=== PATIENT | female | born 1955 | race Caucasian/White ===

== ENCOUNTER 2020-02-25 08:48 | Emergency (ER) | payer MEDICARE, OTHER, SELFPAY ==
[2020-02-25 09:01] VITALS: BP 167/108; PULSE 70; RESP 16; TEMP 36.7; O2SAT 96; BMI 37.1
--- NOTE | 2020-02-25 09:24 | ECG_ITS ---
Measurements Intervals Bath Rate: 56 P: 43 NJ: 212 QRS: -27 QRSD: 85 T: 44 QT: 480 QTc: 464 SINUS BRADYCARDIA WITH FIRST DEGREE AV BLOCK BORDERLINE LEFT AXIS DEVIATION [QRS AXIS < -20] PROLONGED QT INTERVAL Compared to ECG 03/13/2017 11:04:40 First degree AV block now present Prolonged QT interval now present Sinus rhythm no longer present Electronically Signed On 02-25-2020 11:51:13 CDT by Pedro Perez M.D. [email or web address]
--- NOTE | 2020-02-25 09:24 | XR_ITS ---
WS: [id number] PORTABLE CHEST HISTORY: chest pain COMPARISON: 10/19/2017 Linear scar atelectasis at the LEFT costophrenic angle. No pleural effusion or pneumothorax. Cardiac size: Normal. Mediastinum/Aorta: Ectatic aorta. No osseous abnormality seen. XR/XR chest 1V portable [id number] IMPRESSION: Stable chest with ectatic thoracic aorta. No pneumonia.
--- NOTE | 2020-02-25 09:26 | ED_ITS ---
HPI - General Adult General: Chief complaint: General Medical Stated complaint: high BP sent by PCP Time Seen by Provider: 02/25/20 09:06 Source: patient Mode of arrival: ambulatory Limitations: no limitations History of Present Illness: HPI narrative: Patient is a 64-year-old female who presents to ED today with a complaint of hypertension. 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 Patient manually took her blood pressure and confirmed this. The following day she was seen at Dr. Quinones's office who placed her on clonidine 0.1 BID. She was told to come to the emergency department the following day if this did not control her blood pressure. Patient states when she woke up this morning BP was still 190s/100s. Patient does report a mild intermittent headache over the past few days. She does not complain of any visual changes. She chronically has mild lower extremity edema that she has treated with HCTZ for years. She does not complain of any chest pain or shortness of breath currently. She states she has had chest twinges previously but nothing recently. Patient reports a strong family history of hypertension. She notes added stress of her currently being hospitalized. Onset (ago): day(s) Associated symptoms: Reports headache(s) (very mild-intermittently ); Deny chest pain, dyspnea, malaise, nausea, rash, palpitations, syncope or vomiting Review of Systems General: Reports: 10 or more systems reviewed and unremarkable except in HPI and below Const: Denies: fever(s), chills, body aches, change in appetite, change in weight, fatigue or malaise Eyes: Denies: change in vision, blurry vision, photophobia or seeing flashes Card: Reports: swelling of feet/ankles (chronic); Denies: chest pain, palpitations, irregular heart rhythm, edema, lightheadedness, syncope, pre-syncope, dyspnea on exertion, orthopnea or leg pain with exertion Resp: Denies: dyspnea, productive cough, pain on inspiration, hemoptysis or chest congestion GI: Denies: abdominal pain, nausea, vomiting, heartburn or diarrhea : Denies: flank pain, difficulty voiding, dysuria, urinary frequency or urinary urgency Musc: Denies: neck pain, back pain, extremity pain, extremity swelling, joint pain or joint swelling Skin/Breast: Denies: rash Neuro: Reports: headache(s) (very mild-intermittently ); Denies: numbness in extremities, weakness in extremities, sensory changes, lack of coordination or dizziness PFSH ED PFSH: Social History Smoking and tobacco status: former smoker Physical Exam Const: COMMON NORMALS: no acute distress, patient oriented x3, no limitations and alert NUTRITIONAL APPEARANCE: obese ORIENTATION/CONSCIOUSNESS: Yes oriented to person, Yes oriented to place and Yes oriented to time HENMT: COMMON NORMALS: normocephalic and atraumatic HEAD & SCALP: normocephalic and atraumatic Resp: COMMON NORMALS: normal respiratory effort and clear to auscultation bilaterally AUSCULTATION: clear to auscultation bilaterally Cardio: COMMON NORMALS: regular rate and regular rhythm RATE: regular rate RHYTHM: regular rhythm Extremity: COMMON NORMALS: no clubbing, cyanosis or edema and no pedal edema Neuro: DO COMA SCALE: document GCS findings [place] coma scale eye opening: Spontaneous Do coma scale verbal response: Orientated [place] coma scale motor response: Obey commands [place] coma scale total score: 15 COMMON NORMALS: patient oriented x3, moves all extremities, no focal motor deficits, no sensory deficits noted and gait normal SENSORIUM/ORIENTATION: Yes alert, Yes oriented to person, Yes oriented to place and Yes oriented to time Skin: COMMON NORMALS: no rashes or lesions noted GENERAL SKIN EXAM: no rashes or lesions noted Course Vital Signs: Vital signs: Vital Signs Temperature 98.0 F 02/25/20 09:01 Pulse Rate 59 L 02/25/20 11:41 Respiratory Rate 16 02/25/20 11:41 Blood Pressure 137/87 02/25/20 11:41 Pulse Oximetry 92 02/25/20 11:41 MDM - General Adult MDM Narrative: Medical decision making narrative: Patient clinically appears well. She responded well to a low-dose 2.5 mg IV dose of metoprolol. Patient's blood pressure now 137/87. Patient's chest x-ray is normal. She has an elevated TSH with a mildly low free T3. I do not have previous labs. This can be followed up with her PCP. Her EKG shows no ventricular hypertrophy. She has a very mildly prolonged QT interval. This was discussed with Dr. Kate who does not seem concerned. Patient will be placed on small dose of metoprolol at home. We will change clonidine to PRN for BP 160s/100s. Recommend she follow up with her PCP early next week for re-evaluation. Agrees to keep BP log to discuss with them so they can adjust meds accordingly. Lab Data: Labs: Lab Results 02/25/20 02/25/20 02/25/20 Range/Units 09:35 09:35 09:35 WBC 7.4 (4.0-10.0) 10^3/ uL RBC 4.64 (4.1-5.3) 10^6/u L Hgb 14.4 (11.5-15.3) g/dL Hct 44.0 (37.0-47.0) % MCV 94.8 (81-99) fL MCH 31.0 (28.0-34.0) pg MCHC 32.7 (30.0-36.0) g/dL RDW 13.9 (12.1-15.1) % Plt Count 292 (130-400) 10^3/c mm MPV 9.9 (7.4-10.4) fL Neut % (Auto) 63.7 % Lymph % (Auto) 26.3 % [place] % (Auto) 6.6 % Eos % (Auto) 2.4 % Baso % (Auto) 0.7 % Neut # (Auto) 4.7 (1.8-7.7) 10^3/u L Lymph # (Auto) 1.9 (0.8-4.8) 10^3/u L [place]ala # (Auto) 0.5 (0.2-0.9) 10^3/u L Eos # (Auto) 0.2 (0.0-0.8) 10^3/u L Baso # (Auto) 0.1 (0.0-0.1) 10^3/u L Nucleated RBC % (a uto) 0 % Nucleated RBCs # 0.0 /100WBC Sodium 140 (136-145) mmol/L Potassium 4.2 (3.5-5.1) mmol/L Chloride 100 (98-107) mmol/L Carbon Dioxide 28 (22-29) mmol/L Anion Gap 16.2 (5-19) BUN 19 (8-23) mg/dL Creatinine 0.7 (0.5-0.9) mg/dL GFR Calculation 84.0 L (90-130) mL/min Glucose 96 (65-115) mg/dL Calculated Osmolal ity 286 (285-295) mOsm/k g Calcium 10.2 (8.5-10.5) mg/dL Total Bilirubin 0.4 (0.15-1.2) mg/dL AST 20 (0-32) U/L ALT 18 (0-33) U/L Alkaline Phosphata se 84 (35-105) IU/L Troponin T Gen 5 n g/L 11 H (0-10) ng/mL NT-Pro-B Natriuret Pep 123 (0-125) pg/mL Total Protein 7.2 (6.6-8.7) g/dL Albumin 4.6 (3.5-5.2) g/dL Globulin 2.6 (1.3-4.6) g/dL TSH 18.24 H (0.27-4.20) uIU/ mL Free T4 (0.82-1.77) ng/d L Free T3 (2.0-4.4) PG/ML 02/25/20 Range/Units 09:35 WBC (4.0-10.0) 10^3/ uL RBC (4.1-5.3) 10^6/u L Hgb (11.5-15.3) g/dL Hct (37.0-47.0) % MCV (81-99) fL MCH (28.0-34.0) pg MCHC (30.0-36.0) g/dL RDW (12.1-15.1) % Plt Count (130-400) 10^3/c mm MPV (7.4-10.4) fL Neut % (Auto) % Lymph % (Auto) % [place] % (Auto) % Eos % (Auto) % Baso % (Auto) % Neut # (Auto) (1.8-7.7) 10^3/u L Lymph # (Auto) (0.8-4.8) 10^3/u L [place] # (Auto) (0.2-0.9) 10^3/u L Eos # (Auto) (0.0-0.8) 10^3/u L Baso # (Auto) (0.0-0.1) 10^3/u L Nucleated RBC % (a uto) % Nucleated RBCs # /100WBC Sodium (136-145) mmol/L Potassium (3.5-5.1) mmol/L Chloride (98-107) mmol/L Carbon Dioxide (22-29) mmol/L Anion Gap (5-19) BUN (8-23) mg/dL Creatinine (0.5-0.9) mg/dL GFR Calculation (90-130) mL/min Glucose (65-115) mg/dL Calculated Osmolal ity (285-295) mOsm/k g Calcium (8.5-10.5) mg/dL Total Bilirubin (0.15-1.2) mg/dL AST (0-32) U/L ALT (0-33) U/L Alkaline Phosphata se (35-105) IU/L Troponin T Gen 5 n g/L (0-10) ng/mL NT-Pro-B Natriuret Pep (0-125) pg/mL Total Protein (6.6-8.7) g/dL Albumin (3.5-5.2) g/dL Globulin (1.3-4.6) g/dL TSH (0.27-4.20) uIU/ mL Free T4 0.91 (0.82-1.77) ng/d L Free T3 1.5 L (2.0-4.4) PG/ML Imaging Data^: CXR: Radiologist's impression: [place] [address] XRay Report Signed Patient: Jocelyn Kern Unit #: [id number] : 1955 Age/Sex: 64 / F ADM Date: 02/25/20 Loc: ER Room/Bed: Attending Dr: Ordering Provider/Ordering MD: Jia Simmons Date of Service: 02/25/20 Procedure(s): XR chest 1V portable [id number] Accession Number(s): [id number] Report Number: [id number] WS: [id number] PORTABLE CHEST HISTORY: chest pain COMPARISON: 10/19/2017 Linear scar atelectasis at the LEFT costophrenic angle. No pleural effusion or pneumothorax. Cardiac size: Normal. Mediastinum/Aorta: Ectatic aorta. No osseous abnormality seen. XR/XR chest 1V portable [id number] IMPRESSION: Stable chest with ectatic thoracic aorta. No pneumonia. Dictated By: Sarah Beth Suarez DO Signed By: Sarah Beth Suarez DO Signed Date/Time: 02/24 1014 DD/ 1013 Discharge Plan Discharge Patient Disposition: Home, Self-Care Clinical Impression: Hypertension Qualifiers: Hypertension type: unspecified Qualified Code(s): I10 - Essential (primary) hypertension Condition: Stable Prescriptions: New metoprolol tartrate 25 mg tablet 12.5 mg PO BID Qty: 30 RF: 0 No Action clonidine HCl 0.1 mg tablet 0.1 mg PO BID RF: 0 venlafaxine 75 mg capsule,extended release 24hr 150 mg PO BEDTIME RF: 0 alprazolam 0.5 mg tablet 0.5 mg PO Q6H PRN (Reason: Anxiety) RF: 0 levothyroxine 150 mcg tablet 150 mcg PO DAILY RF: 0 Premarin 0.625 mg tablet 0.625 mg PO DAILY RF: 0 hydrochlorothiazide 25 mg tablet 25 mg PO DAILY RF: 0 pregabalin 100 mg capsule 200 mg PO BEDTIME RF: 0 multivitamin Tablet 1 tab PO DAILY RF: 0 omeprazole 20 mg Tablet,Delayed Release (Dr/Ec) 20 mg PO DAILY RF: 0 Discharge Orders: Discharge Order (Routine); Ordered 02/25/20 Ordered By: Jia Simmons Referrals: Abimael Bee MD [Primary Care Provider] - Activity Restrictions/Additional Instructions: As discussed please have your primary care provider follow-up on your thyroid labs as they have previous levels and can compare and adjust medications if indicated. We will place you on a low-dose metoprolol twice daily. We will change her clonidine to a as needed medication to use if systolic blood pressure is over 160 or diastolic over 100 (may use up to 3 tabs daily) Discharge Date/Time: 02/25/20 11:42 Coding Level of Care Code ED Safety Representative for Maryg Fwd Exam Detailed
[2020-02-25] MEDS: metoprolol tartrate 1 mg/1 mL SDV 5 mL 2.5 MG IV (09:38)
[2020-02-25 09:44] LABS: Basophils # 0.1 10^3/uL (0.0-0.1); Basophils % 0.7 %; Eosinophils # 0.2 10^3/uL (0.0-0.8); Eosinophils % 2.4 %; Hemoglobin 14.4 g/dL (11.5-15.3); Lymphocytes # 1.9 10^3/uL (0.8-4.8); Lymphocytes % 26.3 %; Mean Corpuscular HGB Conc 32.7 g/dL (30.0-36.0); Mean Corpuscular Volume 94.8 fL (81-99); Mean Platelet Volume 9.9 fL (7.4-10.4); Monocytes # 0.5 10^3/uL (0.2-0.9); Monocytes % 6.6 %; Neutrophils # 4.7 10^3/uL (1.8-7.7); Neutrophils % 63.7 %; Nucleated Red Blood Cells % 0 %; Platelet Count 292 10^3/cmm (130-400); Red Blood Count 4.64 10^6/uL (4.1-5.3); Red Cell Distribution Width 13.9 % (12.1-15.1); White Blood Count 7.4 10^3/uL (4.0-10.0)
[2020-02-25 10:24] LABS: Troponin T (5th) Once 11 ng/mL (0-10)
[2020-02-25 10:32] LABS: Alanine Aminotransferase 18 U/L (0-33); Albumin Level 4.6 g/dL (3.5-5.2); Alkaline Phosphatase 84 IU/L (35-105); Anion Gap 16.2 (5-19); Aspartate Amino Transferase 20 U/L (0-32); Blood Urea Nitrogen 19 mg/dL (8-23); Calcium 10.2 mg/dL (8.5-10.5); Carbon Dioxide 28 mmol/L (22-29); Chloride 100 mmol/L (98-107); Globulin 2.6 g/dL (1.3-4.6); Glucose 96 mg/dL (65-115); NT Pro B Type Natriuretic Pept 123 pg/mL (0-125); Osmolality Calculated 286 mOsm/kg (285-295); Potassium 4.2 mmol/L (3.5-5.1); Sodium 140 mmol/L (136-145); Thyroid Stimulating Hormone 18.24 uIU/mL (0.27-4.20); Total Bilirubin 0.4 mg/dL (0.15-1.2); Total Protein 7.2 g/dL (6.6-8.7)
[2020-02-25 10:35] VITALS: BP 146/90; PULSE 57; RESP 18; O2SAT 94
[2020-02-25 11:13] LABS: Free T4 Free Thyroxine 0.91 ng/dL (0.82-1.77); T3 Free 1.5 PG/ML (2.0-4.4)
[2020-02-25 11:41] VITALS: BP 137/87; PULSE 59; RESP 16; O2SAT 92
== END 2020-02-25 11:42 | disposition home or self-care (01) ==
PROVIDERS: Emergency Provider Physician Assistant; PCP Family Medicine
DX: I10 Essential (primary) hypertension (principal); Z87.891 Personal history of nicotine dependence
CPT/HCPCS: 12345; 71045; 80053; 83880; 84439; 84443; 84481; 84484; 85025; 93005; 96374; 99282; 99283; J3490

== ENCOUNTER 2020-06-29 09:37 | Outpatient (CLI) | payer MEDICARE, OTHER, SELFPAY ==
--- NOTE | 2020-06-29 10:51 | ECG_ITS ---
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 Interpretive Statements NAME OF STUDY: LEXISCAN SESTAMIBI STRESS TEST INDICATION: Chest Pain, PROCEDURE: At the baseline, the EKG revealed normal sinus rhythm with poor R wave progression. Possible left atrial enlargement. Occasional PVCs. Some nonspecific ST changes. The baseline blood pressure was 156/79 mm Hg with a heart rate of 96 beats/min. Lexiscan was infused over a period of 20 seconds. A total of 0.4 milligrams of Lexiscan was infused. The stress phase was continued for a total of 5 minutes. Heart rate at the end of the stress phase was 94 with a blood pressure 167/83. The EKG at the peak infusion revealed no significant changes. Sestamibi was injected 20 seconds after the Lexiscan infusion. Blood pressure at the end of the recovery phase was 137/70 with a heart rate of 94 per minute. CONCLUSION: 1. No significant EKG changes with the LexiScan infusion 2. No LexiScan induced chest pain or cardiac arrhythmia 3. Normal blood pressure and heart rate response 4. Sestamibi/sestamibi perfusion scan pending; see separate report. BP at 2:00 exercise 167/83 BP at 3:00 exercise stage 141/73 BP at 4:00 exercise stage 137/67 Electronically Signed On 06-30-2020 8:31:41 CDT by Breanna Santos M.D. [id number]
--- NOTE | 2020-06-29 10:51 | NMCV_ITS ---
NM rudy perf SPECT r/s* [id number] Jocelyn Kern Age: 64 Gender: F : 1955 Exam Date: 06/29/2020 10:42 Ordering Phys: Abimael Bee MD Technologist: CHANCE Hughes Exam Location: [facility] Indications: CHEST PAIN STRESS TEST Please see separate stress test report in [facility] for full findings IMAGE PROTOCOL Rest/Stress 1 Lexiscan Day Radiopharmaceutical Dose (mCi) Administration Site Administered by Rest: Tc-99m 10.6 IV CHANCE Hughes Sestamibi Stress:Tc-99m 32.8 IV CHANCE Cuellar Sestamibi Rest: 29-Jun-2020 60 Discovery 630 Stress: 29-Jun-2020 30 Discovery 630 0.4mg Lexiscan. Images obtained in supine and prone position. SPECT RESULTS Technical Quality: Excellent Raw Data Analysis: Normal Image Corrections: No attenuation or motion correction applied Summed Stress Score: 5 Summed Rest Score: 1 Summed Difference Score: 4 PERFUSION FINDINGS Small to moderate area of slightly decreased tracer uptake was noted in the mid and apical anterior, mid anterolateral, apical lateral and apical septal regions. Some reversibility was noted in these regions at rest FUNCTIONAL RESULTS (calculated via Gated SPECT) Stress Image LV EF (%): 58 Stress EDV (mL):111 TID: 1.4 Stress ESV (mL):47 FUNCTIONAL FINDINGS: Segmental wall motion analysis revealing no gross wall motion normalities. IMPRESSIONS 1. Myocardial perfusion imaging revealing a small to moderate area of reversible defects , suggestive of ischemia predominantly in the distribution of the left anterior descending artery with some involvement of the circumflex artery. 2. Normal LV ejection fraction 58%. 3. LV wall motion analysis revealing no gross wall motion abnormalities. 4. LV volume, upper limit of normal. 5. Elevated transient ischemic dilatation ratio also may suggest endocardial ischemia. No similar previous studies are available for comparison Dr Breanna Santos MD FAC (Electronically Signed) Final Date: 29 June 2020 23:43 S
[2020-06-29 10:53] VITALS: BMI 38.2
--- NOTE | 2020-06-29 11:43 | PC.NURSE ---
Unable to perform treadmill stress test Pt unable to reach target heart rate on treadmill d/t fatigue and SOB. Dr Bee notified and orders received to do Lexiscan stres test.
[2020-06-29] MEDS: regadenoson 0.4 Mg/5 ml Syringe IVP (11:50)
[2020-06-29 12:06] VITALS: BP 137/70; PULSE 94
== END 2020-06-29 09:38 | disposition home or self-care (01) ==
LOC: CDL 09:40
PROVIDERS: PCP Family Medicine; Visit Provider Family Medicine
DX: R07.9 Chest pain, unspecified (principal); R06.00 Dyspnea, unspecified; I25.9 Chronic ischemic heart disease, unspecified
CPT/HCPCS: 78452; 93017; A9500; J2785

== ENCOUNTER → 2020-09-07 15:53 | Outpatient (BNVA) | payer MEDICARE, OTHER, SELFPAY | PROVIDERS: PCP Family Medicine; Visit Provider Family Medicine | DX: Z20.828 Contact with and (suspected) exposure to other viral communicable diseases (principal) | CPT/HCPCS: 87635 ==

== ENCOUNTER → 2021-01-27 10:53 | Outpatient (BNVA) | payer MEDICARE, OTHER, SELFPAY | PROVIDERS: PCP Family Medicine; Referring Provider Family Medicine; Visit Provider Internal Medicine Cardiovascular Disease | DX: R94.39 Abnormal result of other cardiovascular function study (principal); I10 Essential (primary) hypertension | CPT/HCPCS: 80048; 85025; 85610 ==

== ENCOUNTER 2021-02-01 15:01 | Observation (INO) | payer MEDICARE, OTHER, SELFPAY ==
[2021-02-01] VITALS (16 sets, daily range): BP systolic 115–146; BP diastolic 58–89; PULSE 68–86; RESP 16–25; TEMP 37; O2SAT 91–96; BMI 39.2
--- NOTE | 2021-02-01 12:30 | XACV_ITS ---
Ht: 165 cm Wt: 107 kg BSA: 2.27 m2 Gender: Female : 1955 Any Known Allergies: Codeine Exam Priority: Routine Procedure(s): Procedure Description: Diagnostic procedure Procedure Description: Left Heart Catheterization Diagnostic Cath Status: Elective Diagnostic Findings * Left Main has no disease. * Left Anterior Descending has no disease. * Circumflex has no disease. * Proximal Right Coronary Artery to Distal Right Coronary Artery: patent, SHEILA: 3 flow. * Coronary angiography shows right dominance. Conclusions 1. There is patent coronary artery disease with one vessel disease. 2. Hyperdynamic left ventricular systolic function. Ejection fraction of 70%. Recommendations * Continue current medical management and risk factor modification. Ventriculography Ejection Fraction: 70.0 % Pressures Phase:Rest AO : 142 / 35 ( 76 ) @ 1:25:00 PM LV : 91 / 6 / 14 @ 1:23:00 PM 91 / 6 / 14 @ 1:23:00 PM 141 / 3 / 27 @ 1:24:00 PM Clinical Evaluation EBL: 5mL-10mL Procedural Details Procedure Consent Obtained. Admit Source: Out Patient. Pre-Procedure Time Out. Identified patient by full name and date of as verbalized by the patient/guarantor. Does the consent match the physician's order: Yes. Accurate & Complete Informed Consent: Yes. Inpatient/Outpatient History & Physical on Chart: Yes. If H&P is completed, is and addenduem needed: Yes; If yes, is the addendum complete: N/A. Visualize and Verify Site with Patient/Guarantor: N/A. Relevant Radiology Images available: N/A. Pre-op teaching completed and patient verbalized understanding. The risks, benefits, and alternatives of sedation and/or procedure were discussed by physician. The patient agrees to continue. Procedure started. Correct patient, site and procedure confirmed by cath team. [facility] Clinical Fraility Score: 3: Managing Well. [employer] Consultant Indications: New Onset Angina/ abnormal stress test. Chest Pain Symptom Assessment: Typical Angina Symptoms. Cardiovascular Instability: No. PERRLA. 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 Lungs clear x 5 lobes. IV Site on Arrival: 20 gauge in the right anticubital. Oxygen started at 2liters/min via nasal canula. bilateral groins was prepped with chloroprep then draped in the usual sterile fashion. right radial was prepped with chloroprep then draped in the usual sterile fashion. Physician notified. Baseline sample Acquired. HR: 72 BPM. Physician arrived. Physician scrubbed in. Immediate Pre-Procedure Time Out. Correct Patient: Yes; Correct Procedure: Yes; Correct Site: Yes; Correct Patient Position: Yes; Correct Supplies: Yes; Dried Flammable Prep: Yes; Blood Products Available: N/A;. Lidocaine 1% infiltrated to the right radial. Arterial access obtained. A 5 sinhala TIG catheter in over wire. Multiple views taken of left coronary artery. Catheter redirected to the RCA. Catheter out. A 5 sinhala Angled Pig catheter in over wire. EDP Sample taken: LV 91/6,14; HR: 78 BPM; SpO2: 97%. LV gram performed in BONILLA @ 10 mL/second for a total of 30 mL. EDP Sample taken: LV 141/3,27; HR: 74 BPM; SpO2: 97%. Pullback taken: LV Off; AO Off; Mean: , Peak to Peak: , SEP: ; HR: 78 BPM; SpO2: Off%. Catheter out. TR band placed. Hemostasis obtained. Post Procedure: Pulses reassessed and unchanged. PERRLA. 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 No VTE prophylaxis required. Medication's Wasted: Lidocaine 1% = 16 mL. Medication's Wasted: Heparin = 1000 units. Medication's Wasted: Nitro = 49.8 mg. Medication's Wasted: Other = fentanyl 50 mg. Total IV fluids: 50 mL. Contrast type used: Omnipaque 300 mgI/mL, 500 mL bottle. Contrast Material : Omnipaque 89 ml. A TR Band was successful obtaining hemostatsis at the Right Radial artery insertion site. Post-op diagnosis: normal coronaries. Complications: none. Estimated blood loss: 5mL-10mL. Procedure completed. Patient transferred by wheelchair to 1st floor. Vital chart was stopped. Access Site Site: Right Radial artery Sheath Size: 6 Fr Hemostasis Method: TR Band Hemostasis Success: Successful Procedure Medications Start: 2:02 PM Stop: 2:02 PM Medication: Versed Amount: 1 mg Route: I.V. Start: 2:02 PM Stop: 2:02 PM Medication: Fentanyl Amount: 50 mcg Route: I.V. Start: 2:12 PM Stop: 2:12 PM Medication: Versed Amount: 1 mg Route: I.V. Start: 2:16 PM Stop: 2:16 PM Medication: Nitrogylcerin Amount: 200 mcg Route: I.A. Start: 2:18 PM Stop: 2:18 PM Medication: Heparin Amount: 5000 units Route: I.V. I, the attending physician, have reviewed and verified all procedure medications. Yes, all medications given per verbal order History/Risk Factors Hypertension: Yes Tobacco Use: Former Report Signatures Finalized by Wenceslao Sawant MD on 02/14/2021 10:13 AM
[2021-02-01 13:09] LABS: SARS Covid-2 Antigen Negative (Negative)
[2021-02-01] MEDS: diphenhydrAMINE 50 mg Capsule PO (13:23)
--- NOTE | 2021-02-01 13:58 | W.PM.OPSUD ---
Surgery/Procedure H&P Update DATE OF PROCEDURE: February 01, 2021 DATE H&P PERFORMED: 01/27/21 H&P UPDATE INFORMATION: I have reviewed H&P completed within last 30 days, I have examined patient prior to procedure and No changes to prior documentation PREOP DIAGNOSIS: Abnormal stress test, angina PLANNED PROCEDURE: Operation Date: 02/01/21 13:30 Proposed Procedures p Cardiac Catheterization 69670 R94.39(Left) - Wenceslao Sawant MD PATIENT REASSESSED PRIOR TO SEDATION, WITH NO CHANGE NOTED: Yes PHYSICAL EXAM: alert, oriented x 3, clear to auscultation bilaterally and regular rate & rhythm AIRWAY EVAL/ANESTHESIA PLAN: ASA II, Risks, benefits & alternatives of sedation and/or procedure discussed and Patient agrees to continue as planned
== END 2021-02-01 19:18 | disposition home or self-care (01) ==
LOC: CSU 15:01
PROVIDERS: Admitting Provider Internal Medicine Cardiovascular Disease; PCP Family Medicine; Visit Provider Internal Medicine Cardiovascular Disease
DX: I25.10 Atherosclerotic heart disease of native coronary artery without angina pectoris (principal); R94.39 Abnormal result of other cardiovascular function study; F41.9 Anxiety disorder, unspecified; F32.9 Major depressive disorder, single episode, unspecified; K21.9 Gastro-esophageal reflux disease without esophagitis; I10 Essential (primary) hypertension; E03.9 Hypothyroidism, unspecified; Z87.891 Personal history of nicotine dependence
CPT/HCPCS: 36415; 87426; 93452; C1769; C1887; C1894; G0378; J1644; J2250; J3010; J3490; J7030; Q0163; Q9967

== ENCOUNTER 2021-02-17 15:12 | Outpatient (CLI) | payer MEDICARE, OTHER, SELFPAY ==
--- NOTE | 2021-02-17 15:45 | USCV_ITS ---
Jocelyn Kern Age: 65 Gender: F : 1955 Exam Date: 02/17/2021 15:27 Ordering Phys: Wenceslao Sawant MD ([email or web address]) Technologist: Yaquelin Colon Exam Location: [facility] Indication: ABNORMAL RESULT OF OTHER CARDIOGRAPHIC BP: 140 / 80 HR: 75 Rhythm: Sinus Technical Quality: Technically difficult study MEASUREMENTS (Male / Female) Normal Values 2D ECHO LV Diastolic Diameter PLAX 4.2 cm 4.2 - 5.9 / 3.9 - 5.3 cm LV Systolic Diameter PLAX 2.4 cm IVS Diastolic Thickness 1.1 cm 0.6 - 1.0 / 0.6 - 0.9 cm IVS Systolic Thickness 1.7 cm LVPW Diastolic Thickness 0.9 cm 0.6 - 1.0 / 0.6 - 0.9 cm LVPW Systolic Thickness 1.8 cm LVOT Diameter 2.0 cm LV Ejection Fraction 2D Teich 75.4 % LV Ejection Fraction MOD 2C 57.7 % LV Ejection Fraction 2C AL 60.3 % LA Diameter 3.0 cm LA Width 4.0 cm LA Height 5.2 cm RA Width 2.8 cm RA Height 3.6 cm Aorta at Sinotubular Diameter 2.6 cm M-MODE LV Diastolic Diameter MM 4.5 cm 4.2 - 5.9 / 3.9 - 5.3 cm LV Systolic Diameter MM 2.5 cm LV Ejection Fraction MM Teich 75.9 % IVS Diastolic Thickness MM 1.1 cm 0.6 - 1.0 / 0.6 - 0.9 cm IVS Systolic Thickness MM 1.7 cm LVPW Diastolic Thickness MM 0.9 cm 0.6 - 1.0 / 0.6 - 0.9 cm LVPW Systolic Thickness MM 1.4 cm Aortic Annulus Diameter 3.2 cm LA Ao Ratio MM 1.0 MV E Point Septal Separation 1.0 cm DOPPLER AV Peak Velocity 160.0 cm/s LVOT Peak Velocity 85.0 cm/s AV Area Cont Eq vti 1.9 cm squared AV Area Cont Eq pk 1.7 cm squared MV Area PHT 4.0 cm squared Mitral E to A Ratio 0.7 MV E' Velocity 35.5 cm/s Mitral E to MV E' Ratio 7.6 Mitral E to LV E' Lateral Ratio 7.7 Mitral E to LV E' Septal Ratio 7.5 TR Peak Velocity 225.0 cm/s TR Peak Gradient 20.3 mmHg TV Peak E Velocity 59.0 cm/s PV Peak Velocity 95.0 cm/s RV Acceleration Time 0.1 s RV Ejection Time 0.2 s RV AcT/ET 0.4 FINDINGS Left Ventricle Normal left ventricular cavity size. Normal left ventricular systolic function. No regional wall motion abnormalities. Grade I/IV diastolic dysfunction (abnormal relaxation filling pattern), normal to mildly elevated filling pressures. Left ventricular ejection fraction is estimated at 65 %. Right Ventricle The right ventricle is normal in size and function. Right Atrium The right atrium is normal in size. Left Atrium The left atrium is normal in size. Mitral Valve Structurally normal mitral valve without significant stenosis or prolapse. There is no mitral regurgitation. Aortic Valve Structurally normal aortic valve without significant sclerosis or stenosis. There is no aortic regurgitation. Tricuspid Valve Structurally normal tricuspid valve without significant stenosis or regurgitation. Pulmonary artery systolic pressure is normal. Pulmonic Valve Structurally normal pulmonic valve without significant stenosis. There is no pulmonic regurgitation. Pericardium Normal pericardium without effusion. Aorta Normal ascending aorta dimension. CONCLUSIONS 1-Normal left ventricular cavity size. Normal left ventricular systolic function. No regional wall motion abnormalities. Grade I/IV diastolic dysfunction (abnormal relaxation filling pattern), normal to mildly elevated filling pressures. Left ventricular ejection fraction is estimated at 65 %. 2-There is no pericardial effusion. 3-No significant chamber abnormalities. 4-Pulmonary artery systolic pressure is within normal limits. 5-Right atrial pressure is around 5 mm of mercury. 6-There are no prior echocardiogram studies to compare. Wenceslao Sawant MD (Electronically Signed) Final Date: 18 Feb 2021 23:03 S
== END 2021-02-17 15:13 | disposition home or self-care (01) ==
LOC: RAD 15:15
PROVIDERS: PCP Family Medicine; Visit Provider Internal Medicine Cardiovascular Disease
DX: R94.39 Abnormal result of other cardiovascular function study (principal)
CPT/HCPCS: 93306

== ENCOUNTER 2023-01-26 16:59 | Emergency (ER) | payer MEDICARE, OTHER, SELFPAY ==
[2023-01-26 17:07] VITALS: BP 179/115; PULSE 71; RESP 16; TEMP 36.6; O2SAT 98; BMI 36.4
--- NOTE | 2023-01-26 17:21 | XRR_ITS ---
PROCEDURE INFORMATION: Exam: XR Chest Exam date and time: 01/26/2023 5:29 PM Age: 67 years old Clinical indication: Dyspnea; Additional info: Elevated BP TECHNIQUE: Imaging protocol: Radiologic exam of the chest. Views: 1 view. COMPARISON: CR XR chest 1V portable [id number] 02/25/2020 9:44 AM FINDINGS: Lungs: Left lower lobe atelectasis versus minimal infiltrate. Emphysematous changes. Pleural spaces: Unremarkable. No pleural effusion. No pneumothorax. Heart/Mediastinum: Unremarkable. No cardiomegaly. Bones/joints: Unremarkable. XR/XR chest 1V portable [id number] IMPRESSION: 1. Left lower lobe atelectasis versus minimal infiltrate. 2. Emphysematous changes.
--- NOTE | 2023-01-26 18:06 | ED_ITS ---
Documented by User: NIKKI Garcia 01/26/23 19:26 HPI - Recheck/Abnormal Lab/Rx General: Chief Complaint: Recheck/Abnormal Lab/Rx Stated Complaint: High Blood Pressure Time Seen by Provider: 01/26/23 18:05 History of Present Illness: 67-year-old female comes in today for complaints of elevated blood pressure. Patient reports no chest pain, shortness of breath, or severe headache. Patient appears nontoxic. Patient only takes hydrochlorothiazide 25 mg a day for her blood pressure. Patient in the past has been on amlodipine but stopped it due to swelling in the lower extremities, patient is also been on metoprolol but it caused her pulse to drop even lower. Patient's heart rate is 65 at rest right now. Patient appears in no pain. Patient's affect is slightly flat. Patient does take some medications for mental health issues. Review of Systems Const: Denies: fever(s) Card: Denies: chest pain Resp: Denies: dyspnea GI: Denies: nausea or vomiting : Denies: difficulty voiding Musc: Denies: back pain Skin/Breast: Denies: rash Neuro: Denies: headache(s) or numbness in extremities Psych: Denies: anxiety PFSH ED PFSH: Medical History (Updated 01/26/23 @ 19:15 by NIKKI Garcia) Anxiety and depression Diverticulosis GERD (gastroesophageal reflux disease) Hypertension Hypothyroidism Internal hemorrhoids Surgical History H/O section H/O colonoscopy 04/16/18 H/O: hysterectomy Hx of cholecystectomy Family History Father CAD (coronary artery disease) Grandfather Cancer paternal and paternal aunt colorectal cancer Denies family history of Anesthesia complication Bleeding disorder Social History Smoking and tobacco status: former smoker Alcohol intake: never Substance/Drug Use: never Household members: spouse Marital status: Current occupational status: employed Physical Exam Const: COMMON NORMALS: alert HENMT: COMMON NORMALS: normocephalic HEAD & SCALP: normocephalic THROAT: posterior oropharynx normal Neck/C-Spine: COMMON NORMALS: full ROM Resp: COMMON NORMALS: normal respiratory effort Cardio: COMMON NORMALS: regular rate and regular rhythm RATE: regular rate RHYTHM: regular rhythm GI: COMMON NORMALS: Soft to palpation and non-tender PALPATION: Yes Soft to palpation : COMMON NORMALS: Yes no CVA tenderness BLADDER/KIDNEY EXAM: Yes no CVA tenderness Back/Pelvis: COMMON NORMALS: no CVA tenderness and thoracic and lumbar spine normal to inspection Extremity: COMMON NORMALS: no pedal edema Neuro: SENSORIUM/ORIENTATION: Yes alert Skin: COMMON NORMALS: turgor normal GENERAL SKIN EXAM: turgor normal Course Vital Signs: Vital signs: Vital Signs Temperature 97.8 F 01/26/23 17:07 Pulse Rate 70 01/26/23 19:28 Respiratory Rate 16 01/26/23 19:28 Blood Pressure 168/97 01/26/23 19:28 Pulse Oximetry 95 01/26/23 19:28 Oxygen Delivery Me thod Room Air 01/26/23 17:07 MDM - Recheck/Abnormal Lab/Rx Medical Decision Making 67-year-old female comes in today for complaints of elevated blood pressure. Rob barbour reports just not being able to get control of her blood pressure patient only takes 25 mg of hydrochlorothiazide daily. Patient appears nontoxic. Patient appears in no pain. Patient denies chest pain or shortness of breath. Lungs are clear to auscultation. Heart rates regular in the 60s. No edema is noted in the extremities. Differential diagnosis includes but not limited to hypertensive emergency, uncontrolled hypertension, CHF. No signs of severe illness is noted at this time. Patient denies any signs of shortness of breath, chest pain, or severe headache to suggest a hypertensive emergency. Vital signs are normal except for some elevation in blood pressure at 190 systolic. Patient was medicated with 25 mg of hydralazine p.o. blood pressure came down to 155/100. Patient maintained no symptoms throughout ER stay of severe headache, shortness of breath, or chest pain. We will start patient on losartan 50 mg daily and patient will continue with hydrochlorothiazide 25 mg daily. Discussed need for follow-up with primary care for recheck of blood pressure and adjustme nt of medication as needed. Recommend returning to the ER for severe symptoms such as chest pain, shortness of breath, or severe headache. Patient reported understanding and agreed to plan. Lab Data 01/26/23 18:06 01/26/23 18:06 Radiology Impressions Chest X-Ray 01/26/23 17:21 IMPRESSION: 1. Left lower lobe atelectasis versus minimal infiltrate. 2. Emphysematous changes. Laboratory Results WBC 8.7 10^3/uL (4.0-10.0) 01/26/23 18:06 RBC 4.53 10^6/uL (4.1-5.3) 01/26/23 18:06 Hgb 14.0 g/dL (11.5-15.3) 01/26/23 18:06 Hct 43.5 % (37.0-47.0) 01/26/23 18:06 MCV 96.0 fl (81-99) 01/26/23 18:06 MCH 30.9 pg (28.0-34.0) 01/26/23 18:06 MCHC 32.2 g/dL (30.0-36.0) 01/26/23 18:06 RDW 13.3 % (12.1-15.1) 01/26/23 18:06 Plt Count 239 10^3/cmm (130-400) 01/26/23 18:06 MPV 10.2 fL (7.4-10.4) 01/26/23 18:06 Neut % (Auto) 58.9 % 01/26/23 18:06 Lymph % (Auto) 29.9 % 01/26/23 18:06 Parke % (Auto) 7.0 % 01/26/23 18:06 Eos % (Auto) 3.2 % 01/26/23 18:06 Baso % (Auto) 0.7 % 01/26/23 18:06 Neut # (Auto) 5.14 10^3/uL (1.8-7.7) 01/26/23 18:06 Lymph # (Auto) 2.6 10^3/uL (0.8-4.8) 01/26/23 18:06 Parke # (Auto) 0.6 10^3/uL (0.2-0.9) 01/26/23 18:06 Eos # (Auto) 0.3 10^3/uL (0.0-0.8) 01/26/23 18:06 Baso # (Auto) 0.1 10^3/uL (0.0-0.1) 01/26/23 18:06 Nucleated RBC % (auto) 0 % 01/26/23 18:06 Nucleated RBCs # 0.0 /100WBC 01/26/23 18:06 Sodium 143 mmol/L (136-145) 01/26/23 18:06 Potassium 3.8 mmol/L (3.5-5.1) 01/26/23 18:06 Chloride 103 mmol/L (98-107) 01/26/23 18:06 Carbon Dioxide 30 mmol/L (22-29) H 01/26/23 18:06 Anion Gap 13.8 (5-19) 01/26/23 18:06 BUN 21 mg/dL (8-23) 01/26/23 18:06 Creatinine 0.8 mg/dL (0.5-0.9) 01/26/23 18:06 GFR Calculation 71.3 mL/min (90-130) L 01/26/23 18:06 Glucose 80 mg/dL (65-115) 01/26/23 18:06 Calculated Osmolality 298 mOsm/kg (285-295) H 01/26/23 18:06 Calcium 9.1 mg/dL (8.5-10.5) 01/26/23 18:06 Total Bilirubin 0.2 mg/dL (0.15-1.2) 01/26/23 18:06 AST 25 U/L (0-32) 01/26/23 18:06 ALT 18 U/L (0-33) 01/26/23 18:06 Alkaline Phosphatase 118 U/L (35-105) H 01/26/23 18:06 Troponin T Baseline 13 ng/L (0-10) H 01/26/23 18:06 NT-Pro-B Natriuret Pep 72 pg/mL (0-125) 01/26/23 18:06 Total Protein 7.3 g/dL (6.6-8.7) 01/26/23 18:06 Albumin 4.3 g/dL (3.5-5.2) 01/26/23 18:06 Globulin 3.0 g/dL (1.3-4.6) 01/26/23 18:06 Urine Color Yellow (Yellow) 01/26/23 18:20 Urine Appearance Clear (CLEAR) 01/26/23 18:20 Urine pH 8 (5-7) H 01/26/23 18:20 Ur Specific [place] 1.010 (1.005-1.030) 01/26/23 18:20 Urine Protein Neg (Negative) 01/26/23 18:20 Urine Glucose (UA) Norm (Normal) 01/26/23 18:20 Urine Ketones Negative (Negative) 01/26/23 18:20 Urine Blood Neg (Negative) 01/26/23 18:20 Urine Nitrate Negative (Negative) 01/26/23 18:20 Urine Bilirubin Neg (Negative) 01/26/23 18:20 Prot Sulfosalicylic Acd Negative (Negative) 01/26/23 18:20 Urine Urobilinogen Norm mg/dL (Negative) 01/26/23 18:20 Ur Leukocyte Esterase 1+ (Negative) H 01/26/23 18:20 Urine RBC 0-4 /hpf (0-2) H 01/26/23 18:20 Urine WBC 15-25 /hpf (0-5) H 01/26/23 18:20 Ur Squamous Epith Cells 0-4 /hpf (0-5) H 01/26/23 18:20 Amorphous Sediment Not Reportable 01/26/23 18:20 Urine Bacteria 1+ /hpf (NONE) H 01/26/23 18:20 Urine Mucus Trace /hpf 01/26/23 18:20 EKG Data EKG 1: EKG interpretation date: 01/26/23 EKG interpretation time: 18:25 Prior EKG tracings: not available for review Interpretation: EKG shows a sinus rhythm with a first-degree AV block. The regular rate at [address] elevation or ectopy is noted. No prior exam was available for comparison. Discharge Plan Discharge Patient Disposition: Home Clinical Impression: Hypertensive urgency Condition: Stable Prescriptions: New losartan 50 mg tablet 50 mg PO DAILY Qty: 30 0RF Discontinued isosorbide mononitrate 30 mg tablet extended release 24 hr 15 mg PO BID Qty: 30 6RF amlodipine [Norvasc] 5 mg tablet 10 mg PO DAILY clonidine HCl 0.1 mg tablet 0.1 mg PO BID PRN (Reason: hypertensive emergency) No Action aripiprazole [Abilify] 10 mg tablet 20 mg PO DAILY venlafaxine 75 mg capsule,extended release 24hr 150 mg PO BEDTIME Qty: 60 11RF pregabalin 100 mg capsule 150 mg PO BID Qty: 60 5RF alprazolam 0.5 mg tablet 0.5 mg PO Q6H PRN (Reason: Anxiety) Qty: 90 3RF hydrochlorothiazide 25 mg tablet See Rx Instructions .ROUTE .COMPLEX Qty: 90 11RF Dose Instruction: Take 1 tablet by mouth once daily Rx Instructions: Take 1 tablet by mouth once daily multivitamin Tablet 1 tab PO DAILY omeprazole 20 mg Tablet,Delayed Release (Dr/Ec) 20 mg PO DAILY levothyroxine 150 mcg tablet 200 mcg PO DAILY Discharge Orders: Discharge ED (Routine); Ordered 01/26/23 Ordered By: James Noonan Referrals: Abimael Bee MD [Primary Care Provider] - Discharge Diet: Usual diet Discharge Activity: Increase activity as tolerated Patient Instructions: DASH Eating Plan (ED), Hypertension (ED) Activity Restrictions/Additional Instructions: Continue with hydrochlorothiazide as directed. Start losartan 50 mg daily in the morning with routine medications. Follow-up with primary care early next week. Return to ER for worsening symptoms such as severe headache, chest pain, or shortness of breath. Coding Level of Care Code ED [employer] for [employer] Fwd Documented by User: Morteza Carlisle DO 01/26/23 23:56 HPI - Recheck/Abnormal Lab/Rx General: Chief Complaint: Recheck/Abnormal Lab/Rx Stated Complaint: High Blood Pressure Time Seen by Provider: 01/26/23 18:05 PFSH ED PFSH: Medical History (Updated 01/26/23 @ 19:15 by NIKKI Garcia) Anxiety and depression Diverticulosis GERD (gastroesophageal reflux disease) Hypertension Hypothyroidism Internal hemorrhoids Surgical History H/O section H/O colonoscopy 04/16/18 H/O: hysterectomy Hx of cholecystectomy Family History Father CAD (coronary artery disease) Grandfather Cancer paternal and paternal aunt colorectal cancer Denies family history of Anesthesia complication Bleeding disorder Social History Smoking and tobacco status: former smoker Alcohol intake: never Substance/Drug Use: never Household members: spouse Marital status: Current occupational status: employed Course Vital Signs: Vital signs: Vital Signs Temperature 97.8 F 01/26/23 17:07 Pulse Rate 70 01/26/23 19:28 Respiratory Rate 16 01/26/23 19:28 Blood Pressure 168/97 01/26/23 19:28 Pulse Oximetry 95 01/26/23 19:28 Oxygen Delivery Me thod Room Air 01/26/23 17:07 MDM - Recheck/Abnormal Lab/Rx Medical Decision Making 67-year-old female comes in today for complaints of elevated blood pressure. Patient reports just not being able to get control of her blood pressure patient only takes 25 mg of hydrochlorothiazide daily. Patient appears nontoxic. Patient appears in no pain. Patient denies chest pain or shortness of breath. Lungs are clear to auscultation. Heart rates regular in the 60s. No edema is noted in the extremities. Differential diagnosis includes but not limited to hypertensive emergency, uncontrolled hypertension, CHF. No signs of severe illness is noted at this time. Patient denies any signs of shortness of breath, chest pain, or severe headache to suggest a hypertensive emergency. Vital signs are normal except for some elevation in blood pressure at 190 systolic. Patient was medicated with 25 mg of hydralazine p.o. blood pressure came down to 155/100. Patient maintained no symptoms throughout ER stay of severe headache, shortness of breath, or chest pain. We will start patient on losartan 50 mg daily and patient will continue with hydrochlorothiazide 25 mg daily. Discussed need for follow-up with primary care for recheck of blood pressure and adjustment of medication as needed. Recommend returning to the ER for severe symptoms such as chest pain, shortness of breath, or severe headache. Patient reported understanding and agreed to plan. This patient was originally seen by NIKKI Guillermo.? I agree with his history, evaluation, and treatment. Lab Data 01/26/23 18:06 01/26/23 18:06 Radiology Impressions Chest X-Ray 01/26/23 17:21 IMPRESSION: 1. Left lower lobe atelectasis versus minimal infiltrate. 2. Emphysematous changes. Laboratory Results WBC 8.7 10^3/uL (4.0-10.0) 01/26/23 18:06 RBC 4.53 10^6/uL (4.1-5.3) 01/26/23 18:06 Hgb 14.0 g/dL (11.5-15.3) 01/26/23 18:06 Hct 43.5 % (37.0-47.0) 01/26/23 18:06 MCV 96.0 fl (81-99) 01/26/23 18:06 MCH 30.9 pg (28.0-34.0) 01/26/23 18:06 MCHC 32.2 g/dL (30.0-36.0) 01/26/23 18:06 RDW 13.3 % (12.1-15.1) 01/26/23 18:06 Plt Count 239 10^3/cmm (130-400) 01/26/23 18:06 MPV 10.2 fL (7.4-10.4) 01/26/23 18:06 Neut % (Auto) 58.9 % 01/26/23 18:06 Lymph % (Auto) 29.9 % 01/26/23 18:06 Parke % (Auto) 7.0 % 01/26/23 18:06 Eos % (Auto) 3.2 % 01/26/23 18:06 Baso % (Auto) 0.7 % 01/26/23 18:06 Neut # (Auto) 5.14 10^3/uL (1.8-7.7) 01/26/23 18:06 Lymph # (Auto) 2.6 10^3/uL (0.8-4.8) 01/26/23 18:06 Parke # (Auto) 0.6 10^3/uL (0.2-0.9) 01/26/23 18:06 Eos # (Auto) 0.3 10^3/uL (0.0-0.8) 01/26/23 18:06 Baso # (Auto) 0.1 10^3/uL (0.0-0.1) 01/26/23 18:06 Nucleated RBC % (auto) 0 % 01/26/23 18:06 Nucleated RBCs # 0.0 /100WBC 01/26/23 18:06 Sodium 143 mmol/L (136-145) 01/26/23 18:06 Potassium 3.8 mmol/L (3.5-5.1) 01/26/23 18:06 Chloride 103 mmol/L (98-107) 01/26/23 18:06 Carbon Dioxide 30 mmol/L (22-29) H 01/26/23 18:06 Anion Gap 13.8 (5-19) 01/26/23 18:06 BUN 21 mg/dL (8-23) 01/26/23 18:06 Creatinine 0.8 mg/dL (0.5-0.9) 01/26/23 18:06 GFR Calculation 71.3 mL/min (90-130) L 01/26/23 18:06 Glucose 80 mg/dL (65-115) 01/26/23 18:06 Calculated Osmolality 298 mOsm/kg (285-295) H 01/26/23 18:06 Calcium 9.1 mg/dL (8.5-10.5) 01/26/23 18:06 Total Bilirubin 0.2 mg/dL (0.15-1.2) 01/26/23 18:06 AST 25 U/L (0-32) 01/26/23 18:06 ALT 18 U/L (0-33) 01/26/23 18:06 Alkaline Phosphatase 118 U/L (35-105) H 01/26/23 18:06 Troponin T Baseline 13 ng/L (0-10) H 01/26/23 18:06 NT-Pro-B Natriuret Pep 72 pg/mL (0-125) 01/26/23 18:06 Total Protein 7.3 g/dL (6.6-8.7) 01/26/23 18:06 Albumin 4.3 g/dL (3.5-5.2) 01/26/23 18:06 Globulin 3.0 g/dL (1.3-4.6) 01/26/23 18:06 Urine Color Yellow (Yellow) 01/26/23 18:20 Urine Appearance Clear (CLEAR) 01/26/23 18:20 Urine pH 8 (5-7) H 01/26/23 18:20 Ur Specific [place] 1.010 (1.005-1.030) 01/26/23 18:20 Urine Protein Neg (Negative) 01/26/23 18:20 Urine Glucose (UA) Norm (Normal) 01/26/23 18:20 Urine Ketones Negative (Negative) 01/26/23 18:20 Urine Blood Neg (Negative) 01/26/23 18:20 Urine Nitrate Negative (Negative) 01/26/23 18:20 Urine Bilirubin Neg (Negative) 01/26/23 18:20 Prot Sulfosalicylic Acd Negative (Negative) 01/26/23 18:20 Urine Urobilinogen Norm mg/dL (Negative) 01/26/23 18:20 Ur Leukocyte Esterase 1+ (Negative) H 01/26/23 18:20 Urine RBC 0-4 /hpf (0-2) H 01/26/23 18:20 Urine WBC 15-25 /hpf (0-5) H 01/26/23 18:20 Ur Squamous Epith Cells 0-4 /hpf (0-5) H 01/26/23 18:20 Amorphous Sediment Not Reportable 01/26/23 18:20 Urine Bacteria 1+ /hpf (NONE) H 01/26/23 18:20 Urine Mucus Trace /hpf 01/26/23 18:20 Discharge Plan Discharge Patient Disposition: Home Clinical Impression: Hypertensive urgency Condition: Stable Prescriptions: New losartan 50 mg tablet 50 mg PO DAILY Qty: 30 0RF Discontinued isosorbide mononitrate 30 mg tablet extended release 24 hr 15 mg PO BID Qty: 30 6RF amlodipine [Norvasc] 5 mg tablet 10 mg PO DAILY clonidine HCl 0.1 mg tablet 0.1 mg PO BID PRN (Reason: hypertensive emergency) No Action aripiprazole [Abilify] 10 mg tablet 20 mg PO DAILY venlafaxine 75 mg capsule,extended release 24hr 150 mg PO BEDTIME Qty: 60 11RF pregabalin 100 mg capsule 150 mg PO BID Qty: 60 5RF alprazolam 0.5 mg tablet 0.5 mg PO Q6H PRN (Reason: Anxiety) Qty: 90 3RF hydrochlorothiazide 25 mg tablet See Rx Instructions .ROUTE .COMPLEX Qty: 90 11RF Dose Instruction: Take 1 tablet by mouth once daily Rx Instructions: Take 1 tablet by mouth once daily multivitamin Tablet 1 tab PO DAILY omeprazole 20 mg Tablet,Delayed Release (Dr/Ec) 20 mg PO DAILY levothyroxine 150 mcg tablet 200 mcg PO DAILY Discharge Orders: Discharge ED (Routine); Ordered 01/26/23 Ordered By: James Noonan Referrals: Abimael Bee MD [Primary Care Provider] - Discharge Diet: Usual diet Discharge Activity: Increase activity as tolerated Patient Instructions: DASH Eating Plan (ED), Hypertension (ED) Activity Restrictions/Additional Instructions: Continue with hydrochlorothiazide as directed. Start losartan 50 mg daily in the morning with routine medications. Follow-up with primary care early next week. Return to ER for worsening symptoms such as severe headache, chest pain, or shortness of breath. Coding Level of Care Code ED [employer] for [place] Avendaño
[2023-01-26 18:10] VITALS: BP 192/106; PULSE 65; O2SAT 97
--- NOTE | 2023-01-26 18:11 | ECG_ITS ---
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 Measurements Intervals [place] Rate: 64 P: 52 OH: 235 QRS: -6 QRSD: 85 T: 55 QT: 414 QTc: 427 Interpretive Statements SINUS RHYTHM WITH FIRST DEGREE AV BLOCK Compared to ECG 02/25/2020 11:06:30 Sinus bradycardia no longer present Prolonged QT interval no longer present Electronically Signed On 01-27-2023 22:20:55 CDT by Breanna Santos M.D. [id number]
[2023-01-26 18:15] LABS: Basophils # 0.1 10^3/uL (0.0-0.1); Basophils % 0.7 %; Eosinophils # 0.3 10^3/uL (0.0-0.8); Eosinophils % 3.2 %; Hematocrit 43.5 % (37.0-47.0); Lymphocytes # 2.6 10^3/uL (0.8-4.8); Lymphocytes % 29.9 %; Mean Corpuscular HGB Conc 32.2 g/dL (30.0-36.0); Mean Corpuscular Hemoglobin 30.9 pg (28.0-34.0); Mean Platelet Volume 10.2 fL (7.4-10.4); Monocytes # 0.6 10^3/uL (0.2-0.9); Neutrophils # 5.14 10^3/uL (1.8-7.7); Neutrophils % 58.9 %; Nucleated Red Blood Cells % 0 %; Platelet Count 239 10^3/cmm (130-400); Red Blood Count 4.53 10^6/uL (4.1-5.3); Red Cell Distribution Width 13.3 % (12.1-15.1); White Blood Count 8.7 10^3/uL (4.0-10.0)
[2023-01-26] MEDS: hyDRALAzine 25 mg Tablet PO (18:27)
[2023-01-26 18:36] VITALS: BP 163/105; PULSE 63; RESP 14; O2SAT 96
[2023-01-26 18:40] LABS: Troponin(5th) Baseline 13 ng/L (0-10)
[2023-01-26 18:45] LABS: Add Urine Microscopic? YES; Bilirubin Urine Neg (Negative); Blood Urine Neg (Negative); Glucose Urine UA Norm (Normal); Ketones Urine Negative (Negative); Nitrate Urine Negative (Negative); Protein Urine Neg (Negative); Sulfosalicylic Acid Urine Negative (Negative); Urine Appearance Clear (CLEAR); Urine Color Yellow (Yellow); Urobilinogen Urine Norm (Negative); pH Urine 8 (5-7)
[2023-01-26 18:46] LABS: Leukocyte Esterase Urine 1+ (Negative)
[2023-01-26 18:47] LABS: Bacteria Urine 1+ /hpf; Mucus Urine TRACE /hpf; RBC Urine 0-4 /hpf (0-2); Squamous Epithelial Cell Urine 0-4 /hpf (0-5); WBC Urine 15-25 /hpf (0-5)
[2023-01-26 18:50] LABS: Alanine Aminotransferase 18 U/L (0-33); Albumin Level 4.3 g/dL (3.5-5.2); Alkaline Phosphatase 118 U/L (35-105); Anion Gap 13.8 (5-19); Aspartate Amino Transferase 25 U/L (0-32); Blood Urea Nitrogen 21 mg/dL (8-23); Calcium 9.1 mg/dL (8.5-10.5); Carbon Dioxide 30 mmol/L (22-29); Chloride 103 mmol/L (98-107); Creatinine Clr Calc Pharmacy 78.5557; Glomerular Filtration Rate 71.3 mL/min (90-130); Glucose 80 mg/dL (65-115); NT Pro B Type Natriuretic Pept 72 pg/mL (0-125); Osmolality Calculated 298 mOsm/kg (285-295); Potassium 3.8 mmol/L (3.5-5.1); Sodium 143 mmol/L (136-145); Total Bilirubin 0.2 mg/dL (0.15-1.2); Total Protein 7.3 g/dL (6.6-8.7)
[2023-01-26 19:27] VITALS: BP 155/108
[2023-01-26] MEDS: losartan 50 mg Tablet PO (19:27)
[2023-01-26 19:28] VITALS: BP 168/97; PULSE 70; RESP 16; O2SAT 95
== END 2023-01-26 19:46 | disposition home or self-care (01) ==
PROVIDERS: Emergency Provider Nurse Practitioner Family; PCP Family Medicine
DX: I16.0 Hypertensive urgency (principal); I10 Essential (primary) hypertension; Z87.891 Personal history of nicotine dependence
CPT/HCPCS: 36415; 71045; 80053; 81001; 83880; 84484; 85025; 93005; 99285

== ENCOUNTER → 2023-02-01 08:39 | Outpatient (BNVA) | payer MEDICARE, OTHER, SELFPAY | PROVIDERS: PCP Family Medicine; Visit Provider Clinical Nurse Specialist Adult Health | DX: I10 Essential (primary) hypertension (principal); E05.00 Thyrotoxicosis with diffuse goiter without thyrotoxic crisis or storm | CPT/HCPCS: 80061; 84443 ==

== ENCOUNTER 2023-10-18 09:18 | Outpatient (CLI) | payer MEDICARE, OTHER, SELFPAY ==
--- NOTE | 2023-10-18 09:25 | XR_ITS ---
WS: [id number] Exam: XR shoulder RT min 2V* [id number] Date/Time of Exam: 10/18/2023 9:38 AM Reason For Exam: fracture Comparison 08/31/2023 from an outside institution. There is a displaced fracture of the surgical neck of the humerus. There is posterior rotational disp lacement of the humeral head and superior displacement of the humeral shaft with [id number] apposit ion. No dislocation. Mild degenerative change of the AC joint and glenohumeral joint. There is some c allus formation at the fracture site. IMPRESSION: 1. Displaced humeral neck fracture as noted above. No positional change since initial radiographs.
== END 2023-10-18 09:19 | disposition home or self-care (01) ==
LOC: RAD 09:19
PROVIDERS: PCP Family Medicine; Visit Provider Family Medicine
DX: S42.211A Unspecified displaced fracture of surgical neck of right humerus, initial encounter for closed fracture (principal); X58.XXXA Exposure to other specified factors, initial encounter
CPT/HCPCS: 73030

== ENCOUNTER → 2024-02-12 10:36 | Outpatient (BNVA) | payer MEDICARE, OTHER, SELFPAY | PROVIDERS: PCP Family Medicine; Visit Provider Clinical Nurse Specialist Adult Health | DX: R30.0 Dysuria (principal); N39.0 Urinary tract infection, site not specified | CPT/HCPCS: 81000; 87086 ==

== ENCOUNTER → 2024-06-18 14:55 | Outpatient (BNVA) | payer MEDICARE, OTHER, SELFPAY | PROVIDERS: PCP Family Medicine; Visit Provider Family Medicine | DX: I10 Essential (primary) hypertension (principal); E05.00 Thyrotoxicosis with diffuse goiter without thyrotoxic crisis or storm; S42.91XA Fracture of right shoulder girdle, part unspecified, initial encounter for closed fracture; E11.9 Type 2 diabetes mellitus without complications; R07.9 Chest pain, unspecified | CPT/HCPCS: 80053; 80061; 83036; 84443; 85025 ==

== ENCOUNTER → 2025-01-13 12:04 | Outpatient (BNVA) | payer MEDICARE, OTHER, SELFPAY | PROVIDERS: PCP Family Medicine; Visit Provider Family Medicine | DX: N39.0 Urinary tract infection, site not specified (principal) | CPT/HCPCS: 81000; 87086 ==

== ENCOUNTER → 2025-06-16 10:58 | Outpatient (BNVA) | payer MEDICARE, OTHER, SELFPAY | PROVIDERS: PCP Family Medicine; Visit Provider Family Medicine | DX: K65.9 Peritonitis, unspecified (principal) | CPT/HCPCS: 80053; 85025; 86140 ==

== ENCOUNTER → 2025-06-30 10:50 | Outpatient (BNVA) | payer MEDICARE, OTHER, SELFPAY | PROVIDERS: PCP Family Medicine; Visit Provider Family Medicine | DX: K65.9 Peritonitis, unspecified (principal) | CPT/HCPCS: 85025; 86140 ==